=== PATIENT | female | born 1985 | race Caucasian/White ===

== ENCOUNTER 2016-11-15 13:28 | Emergency (ER) | payer MEDICAID ==
[~2016-11-15] VITALS: Ht 172.7 cm; Wt 154.2 kg
[~2016-11-15 13:28] MED LIST: CIPRO 500MG TA500 MG PO; FLEXERIL10 MG PO; NAPROXEN SODIU500 MG PO
--- OUTSIDE RECORDS SUMMARY | 2016-11-15 13:40 | External Medical Summary Rpt ---
Author Author , MAXIMUS Rendon MAXIMUS Address Unknown Phone [email or web address] Care Team Providers Care Contracting Specialist Name Role Phone [facility] Unavailable Unavailable [place], [facility] ARBEN ÁLVAREZ, HENRI Unavailable Unavailable LONNIE SOFIYA, LONNIE Unavailable Unavailable SOFIYA [facility] Unavailable Unavailable [facility], [facility], Unavailable Unavailable [facility], Unavailable Unavailable [facility] PICKLYNDA JR, Unavailable Unavailable AUBREY JR [facility] Unavailable Unavailable DEPT [place], [facility] DE[facility] [place] [facility] Unavailable Unavailable DEPT [place], [facility] [place] Purpose Continuity of Care Document - 04-08-2015 through 2016 Problems Code Diagnosis DOS Provider Status [id number] MIGRAINE 08-05-2016 [facility] NOT INTRACT INC W/O STAT MIGRAIN N912 AMENORRHEA 08-05-2016 [facility] Z720 TOBACCO USE 08-05-2016 [facility] [id number] ENCOUNTER 05-11-2016 [facility] FLOOR CARE TECHNICIAN EXAM DISTRICT GENERAL RTN [facility] DEPT W/O [place] ABNORMAL FIND Z1239 ENCOUNTER 05-11-2016 [facility] OTHER DISTRICT SCREENING [facility] DEPT MALIG [place] NEOPLASM BREAST Z3189 ENCOUNTER 05-11-2016 [facility] FOR OTHER DISTRICT PROCREATIVE [facility] DEPT MANAGEMENT [place] Z3202 ENCOUNTER 05-11-2016 [facility] FOR DISTRICT [facility] DEPT TEST RESULT [place] NEGATIVE E663 OVERWEIGHT 03-15-2016 [facility] R5383 OTHER 03-15-2016 [facility] FATIGUE PHYSICIANS GROUP J0190 ACUTE 01-12-2016 [facility] SINUSITIS PHYSICIAN UNSPECIFIED GROUP R05 COUGH 01-12-2016 [facility] R110 NAUSEA 01-12-2016 [facility] D69.6 THROMBOCYTO PENIA, UNSPECIFIED N83.209 UNSPECIFIED OVARIAN CYST, UNSPECIFIED SIDE R10.9 UNSPECIFIED ABDOMINAL PAIN Medications Na ND Rx Da Fi Fi Am Da Di Ph RX Ph St me C No te ll ll ou ys ag ar # ys at rm s nt no ma ic us Or Da si cy ia de te s n re d AZ 50 01 02 6. 5 00 RI Ac IT 11 -0 -0 00 00 TE ti HR 10 7- 3- 0 01 ve OM 78 20 20 16 AI YC 76 17 17 57 D IN 6 49 PH AR 25 MA 0 CY MG #3 TA 93 BL 8 ET BR 64 01 02 12 2 00 RI Ac OM 37 -0 -0 0. 00 TE ti PH 60 7- 3- 00 01 ve EN 65 20 20 0 16 AI IR 71 17 17 57 D -P 6 50 PH SE AR UD MA OE CY PH ED #3 -D 93 M 8 SY R Results Labs Lab Lab Date Result Refere Interp Status Commen Order Detail nces retati t Range on CHLAMYDIA AND GONORRHEA TESTING (04-08-2015 12:30) Chlamyd NEGATIV complet ia 015 E ed trachom 12:30 atis rRNA [Presen ce] in Unspeci fied specime n by Probe & target amplifi cation method Neisser NEGATIV complet ia 015 E ed gonorrh 12:30 oeae rRNA [Presen ce] in Unspeci fied specime n by Probe & target amplifi cation method CHLAMYDIA AND GONORRHEA TESTING (04-08-2015 12:30) COLLECT M. F. complet OR 015 EASTMAN, ed 12:30 RADAR TECHNICIAN ETHNICI WHITE, complet TY 015 NON-HIS ed 12:30 PANIC KIT complet EXPIRAT 015 5 ed ION 12:30 DATE SYMPTOM NO complet S 015 ed 12:30 REASON REVISIT complet FOR 015 /ANNUAL ed REQUEST 12:30 FAMILY PLANNIN G VISIT SPECIME FEMALE complet N 015 ENDOCER ed SOURCE 12:30 VICAL PREGNAN NO complet T 015 ed 12:30 CHART [id number]- complet NUMBER 015 6522 ed 12:30 Chlamyd Pending complet ia 015 ed trachom 12:30 atis rRNA [Presen ce] in Unspeci fied specime n by Probe & target amplifi cation method Neisser Pending complet ia 015 ed gonorrh 12:30 oeae rRNA [Presen ce] in Unspeci fied specime n by Probe & target amplifi cation method Procedures Procedure DOS Code Location Performer Comment URINE 92073 [facility] TEST INC INC VISUAL COLOR CMPRSN METHS UNCLASSIF J3490 [facility] IED DRUGS 7 [facility] INC INC THERAPEUT 86324 [facility] IC [facility] PROPHYLAC INC INC TIC/DX INJECTION SUBQ/IM URINE 36532 [facility] DEPT [facility] DEPT VISUAL [place] COLOR CMPRSN METHS CYTP 24911 [facility], PICKLESIM CERV/VAG 7 LLC ER JR AUTO THIN [place] [address] COMBINED COMBINED TRIIODOTH 6 PHYSICIAN PHYSICIAN YRONINE S LA S LA T3 [place] TT[place] [address] COMBINED COMBINED FREE 6 PHYSICIAN PHYSICIAN THYROXINE S LA S LA LIPID 03693 COMBINED COMBINED PANEL 6 PHYSICIAN PHYSICIAN S LA S LA HEMOGLOBI 03604 COMBINED COMBINED N 6 PHYSICIAN PHYSICIAN GLYCOSYLA S LA S LA ADRIANNE A1C GENERAL 48100 COMBINED COMBINED HEALTH 6 PHYSICIAN PHYSICIAN PANEL S LA S LA URINE 14822 [facility] LONNIE 6 PHYSICIAN SOFIYA TEST S GROUP VISUAL COLOR CMPRSN METHS Encounters Encounter Start End Date Code Location Performer Type Date OFFICE 92089 [facility] T VISIT 5 INC MINUTES [facility]OSPITAL [facility] OUTPATIEN INC T PERIODIC 31298 [facility] 7 [facility] DISTRICT E MED EST HLTH DEPT TH DEPT PATIENT [place] [facility] 18-39 YRS INITIAL 33336 [facility] LONNIE PREVENTIV 6 6 PHYSICIAN SOFIYA E S GROUP MEDICINE NEW PT AGE 18-39YRS OFFICE 72550 [facility] ÁLVAREZ OUTPATIEN 6 6 PHYSICIAN T NEW 30 GROUP MINUTES
--- OUTSIDE RECORDS SUMMARY | 2016-11-15 13:40 | External Medical Summary Rpt ---
Demographics Preferred Language Greek Marital Status Unknown Restorationism Affiliation Unknown Race Unknown Ethnic Group Unknown Author Author MAXIMUS Address Unknown Phone Immunization No patient found.
--- OUTSIDE RECORDS SUMMARY | 2016-11-15 13:40 | External Medical Summary Rpt ---
Author Author , MAXIMUS Rendon MAXIMUS Address Unknown Phone [email or web address] Care Team Providers Care Manager Battery Name Role Phone [facility] Unavailable Unavailable [place], [facility] ARBEN ÁLVAREZ, HENRI Unavailable Unavailable LONNIE SOFIYA, LONNIE Unavailable Unavailable SOFIYA [facility] Unavailable Unavailable INC, [facility], Unavailable Unavailable [facility], Unavailable Unavailable [facility] PICKLYNDA JR, Unavailable Unavailable AUBREY JR [facility] Unavailable Unavailable DEPT [place], [facility] [place] [facility] Unavailable Unavailable DEPT [place], [facility] DE[facility] [place] Purpose Continuity of Care Document - 04-08-2015 through 2016 Problems Code Diagnosis DOS Provider Status [id number] MIGRAINE 08-05-2016 [facility] NOT INTRACT INC W/O STAT MIGRAIN N912 AMENORRHEA 08-05-2016 [facility] Z720 TOBACCO USE 08-05-2016 [facility] INC [id number] ENCOUNTER 05-11-2016 [facility] 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 DEPT W/O [place] ABNORMAL FIND Z1239 ENCOUNTER 05-11-2016 [facility] OTHER DISTRICT SCREENING [facility] DEPT MALIG [place] NEOPLASM BREAST Z3189 ENCOUNTER 05-11-2016 [facility] FOR OTHER DISTRICT PROCREATIVE [facility] DEPT MANAGEMENT [place] Z3202 ENCOUNTER 05-11-2016 [facility] FOR DISTRICT [facility] DEPT TEST RESULT [place] NEGATIVE E663 OVERWEIGHT 03-15-2016 [facility] R5383 OTHER 03-15-2016 [facility] FATIGUE [facility] [id number] ACUTE 01-12-2016 [facility] SINUSITIS PHYSICIAN UNSPECIFIED GROUP R05 COUGH 01-12-2016 [facility] R110 NAUSEA 01-12-2016 [facility] D69.6 THROMBOCYTO PENIA, UNSPECIFIED [...] F. 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 DEPT VISUAL [place] COLOR CMPRSN METHS CYTP 90975 [facility], PICKLESIM CERV/VAG 7 LLC ER JR AUTO THIN [place] [address] COMBINED COMBINED TRIIODOTH 6 PHYSICIAN PHYSICIAN YRONINE S LA S LA T3 [place] TT3 [place] [address] COMBINED COMBINED FREE 6 PHYSICIAN PHYSICIAN THYROXINE S LA S LA LIPID 63323 COMBINED COMBINED PANEL 6 PHYSICIAN PHYSICIAN S LA S LA HEMOGLOBI 61580 COMBINED COMBINED N 6 PHYSICIAN PHYSICIAN GLYCOSYLA S LA S LA ADRIANNE A1C GENERAL 29853 COMBINED COMBINED HEALTH 6 PHYSICIAN PHYSICIAN PANEL S LA S LA URINE 11856 [facility] LON[facility] 6 PHYSICIAN SOFIYA TEST S GROUP VISUAL COLOR CMPRSN METHS Encounters Encounter Start End Date Code Location Performer Type Date OFFICE 49858 [facility] T VISIT 5 INC MINUTES HOSPITAL [facility] - 7 [facility] OUTPATIEN INC T PERIODIC 77773 [facility] 7 DISTRICT DISTRICT E MED EST HLTH DEPT TH DEPT PATIENT [place] JEFFERSON 18-39 YRS INITIAL 61787 [facility] LONNIE PREVENTIV 6 6 PHYSICIAN SOFIYA E S GROUP MEDICINE NEW PT AGE 18-39YRS OFFICE 52684 [facility] ÁLVAREZ OUTPATIEN 6 6 PHYSICIAN T NEW 30 GROUP MINUTES
--- OUTSIDE RECORDS SUMMARY | 2016-11-15 13:40 | External Medical Summary Rpt ---
Author Author , MAXIMUS Rendon MAXIMUS Address Unknown Phone [email or web address], [email or web address] Care Team Providers Care Electronic Tester Name Role Phone [facility] Unavailable Unavailable [place], [facility] HENRI STOKES Unavailable Unavailable LONNIE SOFIYA, LONNIE Unavailable Unavailable SOFIYA [facility] Unavailable Unavailable INC, [facility], Unavailable Unavailable [facility], Unavailable Unavailable [facility] AUBREY MARTINEZ, Unavailable Unavailable AUBREY MARTINEZ [facility] Unavailable Unavailable DEPT [place], [facility] DE[facility] [place] [facility] Unavailable Unavailable DEPT [place], [facility] DE[facility] [place] Purpose Continuity of Care Document - 01-12-2016 through 2016 Problems Code Diagnosis DOS Provider Status [id number] MIGRAINE 08-05-2016 [facility] NOT INTRACT INC W/O STAT MIGRAIN N912 AMENORRHEA 08-05-2016 [facility]NSPEC[facility]IED [facility] Z720 TOBACCO USE 08-05-2016 [facility] [id number] ENCOUNTER 05-11-2016 [facility] 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 EXAM DISTRICT GENERAL RTN [facility] DEPT W/O [place] ABNORMAL FIND Z1239 ENCOUNTER 05-11-2016 [facility] OTHER DISTRICT SCREENING [facility] DEPT MALIG [place] NEOPLASM BREAST Z3189 ENCOUNTER 05-11-2016 [facility] FOR OTHER DISTRICT PROCREATIVE [facility] DEPT MANAGEMENT [place] Z3202 ENCOUNTER 05-11-2016 [facility] FOR DISTRICT [facility] DEPT TEST RESULT [place] NEGATIVE E663 OVERWEIGHT 03-15-2016 [facility] R5383 OTHER 03-15-2016 [facility] FATIGUE PHYSICIANS GROUP J0190 ACUTE 01-12-2016 [facility] SINUSITIS PHYSICIAN UNSPECIFIED GROUP R05 COUGH 01-12-2016 [facility] R110 NAUSEA 01-12-2016 [facility] Medications Na ND Rx Da Fi Fi [...] #3 -D 93 M 8 SY R Procedures Procedure DOS Code Location Performer Comment THERAPEUT 69289 [facility] IC 7 [facility] PROPHYLAC INC INC TIC/DX INJECTION SUBQ/IM UNCLASSIF J3490 [facility] IED DRUGS 7 [facility] INC URINE 87418 [facility] TEST INC INC VISUAL COLOR CMPRSN METHS CYTP 79030 [facility], PICKLESIM CERV/VAG 7 [facility] ER JR AUTO THIN LAYER PREP MNL SCREEN URINE 53494 [facility] TEST HL[facility] DEPT HLTH DEPT VISUAL [place] COLOR CMPRSN METHS URINE 78135 [facility] 6 PHYSICIAN SOFIYA TEST S GROUP [place] [address] COMBINED COMBINED FREE 6 PHYSICIAN PHYSIC[place] [address] COMBINED COMBINED TRIIODOTH 6 PHYSICIAN PHYSICIAN YRONINE S LA S LA T3 TOTAL TT3 GENERAL 90668 COMBINED COMBINED HEALTH 6 PHYSICIAN PHYSICIAN PANEL S [place] S [place] HEMOGLOBI 32265 COMBINED COMBINED N 6 PHYSICIAN PHYSICIAN GLYCOSYLA S LA S LA ADRIANNE A1C LIPID 66365 COMBINED COMBINED PANEL 6 PHYSICIAN PHYSICIAN S LA S LA Encounters Encounter Start End Date Code Location Performer Type Date OFFICE 96712 [facility] T VISIT 5 INC MINUTES [facility]OSPITAL [facility] Herrera 7 7 [facility] OUTPATIEN INC T PERIODIC 83135 [facility] 7 DISTRICT DISTRICT E MED EST HLTH DEPT HLTH DEPT PATIENT [place] JEFFERSON 18-39 YRS INITIAL 03099 [facility] LONNIE PREVENTIV 6 6 PHYSICIAN SOFIYA Silveira S GROUP MEDICINE NEW PT AGE 18-39YRS OFFICE 74653 [facility] HENRI OUTPATIEN 6 6 PHYSICIAN T ZOHAIB 30 GROUP MINUTES
--- OUTSIDE RECORDS SUMMARY | 2016-11-15 13:40 | External Medical Summary Rpt ---
Author Author MAXIMUS Chang, [employer] Organization [employer] Address Unknown Phone Unavailable Results CHLAMYDIA AND GONORRHEA TESTING Observa Value Referen Units Interpr Notes Date tion ce etation Range COLLECT M. F. 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 tion in tion in tion in tion in 12:30 source source source source PM data data data data ETHNICI WHITE, No No No No Apr 08 TY NON-HIS informa informa informa informa 2015 PANIC tion in tion in tion in tion in 12:30 source source source source PM data data data data KIT No No No No Apr 8 EXPIRAT 5 informa informa informa informa 2015 ION tion in tion in tion in tion in 12:30 DATE source source source source PM data data data data SYMPTOM NO No No No No Apr 8 S informa informa informa informa 2015 tion in tion in tion in tion in 12:30 source source source source PM data data data data REASON REVISIT No No No No Apr 08 FOR /ANNUAL informa informa informa informa 2015 REQUEST FAMILY tion in tion in tion in tion in 12:30 source source source source PM PLANNIN data data data data G VISIT SPECIME FEMALE No No No No Apr 08 N ENDOCER informa informa informa informa 2015 SOURCE VICAL tion in tion in tion in tion in 12:30 source source source source PM data data data data PREGNAN NO No No No No Apr 8 T informa informa informa informa 2015 tion in tion in tion in tion in 12:30 source source source source PM data data data data CHART [id number]- No No No No Apr 8 NUMBER 6522 informa informa informa informa 2015 tion in tion in tion in tion in 12:30 source source source source PM data data data data Chlamyd NEGATIV No No No NEGATIV Apr 8 ia E informa informa informa E 2015 trachom tion in tion in tion in RESULT= 12:30 atis source source source WITHIN PM rRNA data data data NORMAL [Presen ce] in LIMITSP Unspeci OSITIVE fied specime RESULT= n by Probe & ABNORMA target LEQUIVO ROBERTO amplifi RESULT= cation method INDETER MINATEU NSATISF ACTORY RESULT= INVALID Neisser NEGATIV No No No NEGATIV Apr 8 ia E informa informa informa E 2015 gonorrh tion in tion in tion in RESULT= 12:30 oeae source source source WITHIN PM rRNA data data data NORMAL [Presen ce] in LIMITSP Unspeci OSITIVE fied specime RESULT= n by Probe & ABNORMA target LEQUIVO ROBERTO amplifi RESULT= cation method INDETER MINATEU NSATISF ACTORY RESULT= INVALID THE APTIMA COMBO 2 [place] IS NOT INTENDE D FOR THE EVALUAT ION OF SUSPECT EDSEXUA L ABUSE OR FOR OTHER MEDICO- LEGAL INDICAT IONS. FOR THOSE PATIENT S FORWHOM A FALSE POSITIV E RESULT MAY HAVE ADVERSE PSYCHO- SOCIAL IMPACT, THE [facility] MMENDS RETESTI NG.\.br \This report contain s patient informa tion that must be protect ed in accorda nce with the Health Insuran ce Portabi lity and Account ability Act. CHLAMYDIA AND GONORRHEA TESTING Observa Value Referen Units Interpr Notes Date tion ce etation Range COLLECT M. F. 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 TENDER tion in tion in tion in tion in 12:30 source source source source PM data data data data ETHNICI WHITE, No No No No Apr 08 TY NON-HIS informa informa informa informa 2015 PANIC tion in tion in tion in tion in 12:30 source source source source PM data data data data KIT No No No No Apr 08 EXPIRAT 5 informa informa informa informa 2015 ION tion in tion in tion in tion in 12:30 DATE source source source source PM data data data data SYMPTOM NO No No No No Apr 08 S informa informa informa informa 2015 tion in tion in tion in tion in 12:30 source source source source PM data data data data REASON REVISIT No No No No Apr 08 FOR /ANNUAL informa informa informa informa 2015 REQUEST FAMILY tion in tion in tion in tion in 12:30 source source source source PM PLANNIN data data data data G VISIT SPECIME FEMALE No No No No Apr 08 N ENDOCER informa informa informa informa 2015 SOURCE VICAL tion in tion in tion in tion in 12:30 source source source source PM data data data data PREGNAN NO No No No No Apr 08 T informa informa informa informa 2015 tion in tion in tion in tion in 12:30 source source source source PM data data data data CHART [id number]- No No No No Apr 08 NUMBER 6522 informa informa informa informa 2015 tion in tion in tion in tion in 12:30 source source source source PM data data data data Chlamyd Pending No No No No Apr 08 ia informa informa informa informa 2015 trachom tion in tion in tion in tion in 12:30 atis source source source source PM rRNA data data data data [Presen ce] in Unspeci fied specime n by Probe & target amplifi cation method Neisser Pending No No No \.br\Apr 08 ia informa informa informa is 2015 gonorrh tion in tion in tion in report 12:30 oeae source source source contain PM rRNA data data data s [Presen patient ce] in Unspeci informa fied tion specime that n by must be Probe & target protect ed in amplifi accorda cation nce method with the Health Insuran ce Portabi lity and Account ability Act.
--- OUTSIDE RECORDS SUMMARY | 2016-11-15 13:40 | External Medical Summary Rpt ---
Author Author MAXIMUS Chang, [employer] Organization [employer] Address Unknown Phone Unavailable Results CHLAMYDIA AND GONORRHEA TESTING Observa Value Referen Units Interpr Notes Date tion ce etation Range COLLECT M. F. 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 CHLAMYDIA AND GONORRHEA TESTING Observa Value Referen Units Interpr Notes Date tion ce etation Range COLLECT M. F. No No No No Apr 08 OR EASTMAN, informa informa informa informa 2015 VIDEO ARCADE MANAGER tion in tion in tion in tion [...]
--- OUTSIDE RECORDS SUMMARY | 2016-11-15 13:40 | External Medical Summary Rpt ---
Demographics Preferred Language Belarusian Marital Status Unknown Congregation Affiliation Unknown Race Unknown Ethnic Group Unknown Author Author MAXIMUS Address Unknown Phone Immunization No patient found.
--- OUTSIDE RECORDS SUMMARY | 2016-11-15 13:40 | External Medical Summary Rpt ---
Author Author , MAXIMUS Rendon MAXIMUS Address Unknown Phone [email or web address] (Livebookings) Care Team Providers Care Fire Safety Director Name Role Phone [facility] Unavailable Unavailable [place], [facility] HENRI STOKES Unavailable Unavailable LONNIE SOFIYA, LONNIE Unavailable Unavailable SOFIYA [facility] Un[facility] Un[facility], [facility], Unavailable Unavailable [facility], Unavailable Unavailable [facility] AUBREY MARTINEZ, Unavailable Unavailable AUBREY MARTINEZ [facility] Unavailable Unavailable DEPT [place], [facility] DEPT [place] [facility] Unavailable Unavailable DEPT [place], [facility] [place] Purpose Continuity of Care Document - 01-12-2016 through 2016 Problems Code Diagnosis DOS Provider Status [id number] MIGRAINE 08-05-2016 [facility] NOT INTRACT INC W/O STAT MIGRAIN N912 AMENORRHEA 08-05-2016 [facility] UNSPECIFIED [facility] INC Z720 TOBACCO USE 08-05-2016 [facility] [id number] ENCOUNTER 05-11-2016 [facility] 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 DEPT W/O [place] ABNORMAL FIND Z1239 ENCOUNTER 05-11-2016 [facility] OTHER DISTRICT SCREENING [facility] DEPT MALIG [place] NEOPLASM BREAST Z3189 ENCOUNTER 05-11-2016 [facility] FOR OTHER DISTRICT PROCREATIVE [facility] DEPT MANAGEMENT [place] Z3202 ENCOUNTER 05-11-2016 [facility] FOR DISTRICT [facility] DEPT TEST RESULT [place] NEGATIVE E663 OVERWEIGHT 03-15-2016 [facility] R5383 OTHER 03-15-2016 [facility] FATIGUE PHYSICIANS GROUP J0190 ACUTE 01-12-2016 [facility] SINUSITIS PHYSICIAN UNSPECIFIED GROUP R05 COUGH 01-12-2016 [facility] R110 NAUSEA 01-12-2016 [facility] Medications Na ND Rx Da [...] Procedure DOS Code Location Performer Comment THERAPEUT 33976 [facility] IC 7 [facility] PROPHYLAC INC INC TIC/DX INJECTION SUBQ/IM UNCLASSIF J3490 [facility] IED DRUGS 7 [facility] INC INC URINE 93938 [facility] TEST INC INC VISUAL COLOR CMPRSN METHS CYTP 22877 [facility], PICKLESIM CERV/VAG 7 [facility] ER JR AUTO THIN LAYER PREP MNL SCREEN URINE 37282 [facility] DEPT HLTH DEPT VISUAL [place] COLOR CMPRSN METHS URINE 93592 [facility] 6 PHYSICIAN SOFIYA TEST S GROUP [place] [address] COMBINED COMBINED FREE 6 PHYSICIAN PHYSIC[place] [address] COMBINED COMBINED TRIIODOTH 6 PHYSICIAN PHYSICIAN YRONINE S LA S LA T3 TOTAL TT3 GENERAL 80895 COMBINED COMBINED HEALTH 6 PHYSICIAN PHYSICIAN PANEL S LA S [place] HEMOGLOBI 52471 COMBINED COMBINED N 6 PHYSICIAN PHYSICIAN GLYCOSYLA S LA S LA ADRIANNE A1C LIPID 98881 COMBINED COMBINED PANEL 6 PHYSICIAN PHYSICIAN S LA S LA Encounters Encounter Start End Date Code Location Performer Type Date OFFICE 23205 [facility] T VISIT 5 INC MINUTES [facility]OSPITAL [facility] Herrera 7 7 [facility] OUTPATIEN INC T PERIODIC 55405 [facility] 7 [facility] DISTRICT E MED EST HLTH DEPT HLTH DEPT PATIENT [place] 18-39 YRS INITIAL 29798 [facility] LONNIE PREVENTIV 6 6 PHYSICIAN SOFIYA Silveira S GROUP MEDICINE NEW PT AGE 18-39YRS OFFICE 66016 [facility] HENRI OUTPATIEN 6 6 PHYSICIAN T ZOHAIB 30 GROUP MINUTES
--- NOTE | 2016-11-15 13:50 | Urgent Treatment Center Report ---
History of Present Issue Date/Time Seen by Provider 11/15/16 4119 Visit Reason Pt arrived:Walked Presenting Problem:PT STATES WAKING UP THIS MORNING WITH LEFT LOWER JAW SWELLING AND PAIN Location if Accident: Onset of symptoms date/time:11/15/16/ or onset unknown for:MEDICAL HX UNKNOWN Have you (or family members/close friends) recently traveled outside the [place]? N If Yes, where/when: Have you had exposure to infectious disease within the past month? TB? Other? Specify: c/o pain and swelling left upper jaw. First noticed the pain around 4am. Took Ibuprofen and fell back to sleep. Woke up w/ pain "some better" but noticed mild swelling in same area. Hx of a fractured wisdom tooth top left "but everytime I try to see the dentist, he is busy". Thinks she sees Dr. Nunez here in [place]. Denies fever, redness, malaise, ear pain, aches, chills. Pain no worse w/ chewing but noticed while brushing top left and if lays on left side. Source patient Exam Limitations no limitations ALLERGIES Coded Allergies: Coconut (From COCONUT (FOOD/DRUG)) (08/05/16) coconut (From COCONUT (FOOD/DRUG)) (08/05/16) History Medical History General CAD? No Angina: No [place]: No Hypertension? No Hyperlipidemia? No CHF? No DVT? No PE? No COPD? No Asthma? Yes Anemia? No GERD? No Gastric ulcers? No GI Bleed? No Hernia? No Thyroid Problems? No Hypothyroidism? No CVA? No Seizures? No Diabetes? No Renal Insuffiency? No UTI? No Stones? No BPH? No GB Disease: Yes Nephritic Syndrome? No Asplenia? No Hepatitis? No Sickle Cell Disease? No Arthritis? No Migraines? No Cataracts? No Glaucoma? No MRSA? No HIV? No TB? No Anxiety? No Depression? No Cancer? 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 denies: ear pain, nose pain, mouth swelling, tongue swelling, dental caries, loose teeth, throat pain, throat swelling. Respiratory denies shortness of breath Gastrointestinal denies nausea, denies vomiting Skin denies change in color, denies lesions, denies rash Psychiatric/Neurological denies headache, denies other (dizziness) Physical Exam Vital Signs Vital Signs Date Time Temp Pulse Resp B/P Pulse O2 O2 Flow FiO2 Ox Delivery Rate 11/15 1405 97.6 97 20 125/77 97 11/15 1334 97.6 97 20 97 General Appearance no apparent distress, obese Eye Exam - bilateral eye normal exam Ear, Nose, Throat jennifer EACs, TMs, nares normal; pharynx normal; no obvious dental caries; gingivitis present; partially erupted and fractures molar top left without sign of abscess, surrounding gum tender without redness, no maxillary tenderness Neck non-tender, supple Respiratory Status No: respiratory distress. Lung Sounds anterior: lungs clear. posterior: lungs clear. bilateral: lungs clear. Cardiovascular no peripheral edema Neurologic alert, oriented x 3 Skin normal color, warm/dry Lymphatic no adenopathy Medical Decision Making LABS/Meds/Orders Pt receiving controlled substance in ED? No Departure Departure Time of Disposition 1356 Disposition DC Home or Self Care(routine) Clinical Impression Primary Impression: Broken tooth with complication Qualifiers: Encounter type: initial encounter Fracture type: closed Qualified Code: S02.5XXA - Fracture of tooth (traumatic), initial encounter for closed fracture Condition STABLE Referrals NO REFERRAL Dr. Nunez, your dentist. Call today and schedule follow up appt [facility]. You can not get in there this week, call around to other local dentist offices. Patient Instructions DI for Fractured Tooth, DI for Tooth Abscess Additional Instructions * Start antibiotic(s) immediately and be sure to take as ordered for the FULL length of time unless dentist tells you otherwise. * Monitor closely. FU immediately for new or worsening symptoms ( including but not limited to redness, swelling, red streaking, fever, chills, pain). * Warm compresses may help w/ pain and/or inflammation * Tylenol 650-1000mg every 6 hours as needed and/or ibuprofen 600-800mg every 6 hours as needed (as long as your primary care doctor has told you that it is ok to take both) for aches/pain. Discharge Counseling Counseled pt/family regarding diagnosis, medications/RX, home care, follow up needs Prescriptions Current Visit Scripts AMOXICILLIN (Amoxicillin 875MG Tab) 875 MG PO BID #20 TAB at 1417
[2016-11-15] MEDS ORDERED: AMOXICILLIN875 MG PO (14:03)
[2016-11-15 14:05] VITALS: BP 125/77
== END 2016-11-15 14:06 | disposition home or self-care (01) ==
LOC: UTC 13:28
DX: S02.5XXA Fracture of tooth (traumatic), initial encounter for closed fracture (principal); Z72.0 Tobacco use

== ENCOUNTER 2017-03-12 12:43 | Emergency (ER) | payer MEDICAID ==
[~2017-03-12] VITALS: Ht 172.7 cm; Wt 154.2 kg
[~2017-03-12 12:43] MED LIST changes: +AMOXICILLIN875 MG PO
--- OUTSIDE RECORDS SUMMARY | 2017-03-12 12:48 | External Medical Summary Rpt | CCD ---
Demographics Preferred Language Eritrean Marital Status Unknown Scientologist Affiliation Unknown Race Unknown Ethnic Group Unknown Author Author , MAXIMUS STROUD Address Unknown Phone Immunization No patient found.
--- OUTSIDE RECORDS SUMMARY | 2017-03-12 12:48 | External Medical Summary Rpt | CCD ---
Author Author [employer] Organization [employer] Address Unknown Phone Unavailable Purpose Continuity of Care Document - through 2016
--- OUTSIDE RECORDS SUMMARY | 2017-03-12 12:48 | External Medical Summary Rpt | CCD ---
Author Author , MAXIMUS STROUD Address Unknown Phone [email or web address] Purpose Continuity of Care Document - through 2016 Problems Code Diagnosis DOS Provider Status D69.6 THROMBOCYTO PENIA, UNSPECIFIED N83.209 UNSPECIFIED OVARIAN CYST, UNSPECIFIED SIDE R10.9 UNSPECIFIED ABDOMINAL PAIN
--- OUTSIDE RECORDS SUMMARY | 2017-03-12 12:48 | External Medical Summary Rpt | CCD ---
Author Author , MAXIMUS STROUD Address Unknown Phone [email or web address] Purpose Continuity of Care Document - through 2016 Problems Code Diagnosis DOS Provider Status D69.6 THROMBOCYTO PENIA, UNSPECIFIED N83.209 UNSPECIFIED OVARIAN CYST, UNSPECIFIED SIDE R10.9 UNSPECIFIED ABDOMINAL PAIN
--- OUTSIDE RECORDS SUMMARY | 2017-03-12 12:48 | External Medical Summary Rpt | CCD ---
Demographics Preferred Language Salvadorean Marital Status Unknown Samaritan Affiliation Unknown Race Unknown Ethnic Group Unknown Author Author , MAXIMUS STROUD Address Unknown Phone Immunization No patient found.
--- NOTE | 2017-03-12 13:09 | Urgent Treatment Center Report ---
History of Present Issue Date/Time Seen by Provider 03/12/17 1302 Visit Reason Pt arrived:Walked Presenting Problem:PT C/O A MIGRAINE THAT CAME ON SUDDEN THIS AM AROUND 0500 PT TOOK EXCEDRINE BUT NO CHANGE. LIGHT AND NOISE SENSITIVE WITH N/V. Location if Accident: Onset of symptoms date/time:03/12/1703/18/500 or onset unknown for: Have you (or family members/close friends) recently traveled outside the [place]? N If Yes, where/when: Have you had exposure to infectious disease within the past month? TB? Other? Specify: Source patient, RN notes reviewed Exam Limitations no limitations Comment Migraine headache with acute onset this am. Has a migraine every 1-2 months. Usually resolves with Excedrin Migraine but today it has not helped. Is sensitive to light and nauseated. No different symptoms than previous headaches other than it isn't going away as easily. ALLERGIES Coded Allergies: coconut (From COCONUT (FOOD/DRUG)) (08/05/16) History Medical History General CAD? No Angina: No [place]: No Hypertension? No Hyperlipidemia? No CHF? No DVT? No PE? No COPD? No Asthma? Yes Anemia? No GERD? No Gastric ulcers? No GI Bleed? No Hernia? No Thyroid Problems? No Hypothyroidism? No CVA? No Seizures? No Diabetes? No Renal Insuffiency? No UTI? No Stones? No BPH? No GB Disease: Yes Nephritic Syndrome? No Asplenia? No Hepatitis? No Sickle Cell Disease? No Arthritis? No Migraines? Yes Cataracts? No Glaucoma? No MRSA? No HIV? No TB? No Anxiety? No Depression? No Cancer? 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 Social History Smoking Hx Smoker: Current Every Day Smoker Tobacco: Yes Type Cigarettes Packs/day < 1 Pack Alcohol Alcohol: No Review of Systems All Other Systems Reviewed and Negative Gastrointestinal nausea, vomiting Psychiatric/Neurological headache Physical Exam Vital Signs Vital Signs Date Time Temp Pulse Resp B/P Pulse O2 O2 Flow FiO2 Ox Delivery Rate 03/12 1252 98.6 86 18 125/69 96 General Appearance normal appearance, no apparent distress Eye Exam - bilateral eye normal exam, bilateral eye PERRL, bilateral eye EOMI Ear, Nose, Throat hearing grossly normal, normal ENT inspection Respiratory Status No: respiratory distress, trachea midline, chest symmetrical. Lung Sounds bilateral: normal breath sounds, lungs clear. Cardiovascular normal exam, regular rate/rhythm, no peripheral edema, no gallop, no JVD, no murmur, no rub Extremities non-tender, normal range of motion, normal inspection, normal capillary refill Neurologic alert, normal exam, no motor/sensory deficits, oriented x 3 Mental status normal mood/affect Medical Decision Making LABS/Meds/Orders Pt receiving controlled substance in ED? No Results/Orders Current Medication Orders Sig/Ysabel Start time Last Medication Dose Route Stop Time Status Admin Ketorolac 60 MG ONCE ONE 03/12 1330 AC Tromethamine IM 03/12 1331 Promethazine HCl 25 MG ONCE ONE 03/12 1330 AC IM 03/12 1331 Sodium Chloride 25 ML ONCE ONE 03/12 1330 AC IV 03/12 1344 Ketorolac 0 .STK-MED ONE 03/12 1321 DC Tromethamine .ROUTE Promethazine HCl 0 .STK-MED ONE 03/12 1321 DC .ROUTE Departure Departure Time of Disposition 1325 Disposition DC Home or Self Care(routine) Clinical Impression Primary Impression: Migraine headache Qualifiers: Migraine type: without aura Status migrainosus presence: without status migrainosus Intractability: not intractable Qualified Code: G43.009 - Migraine without aura, not intractable, without status migrainosus Condition STABLE Referrals Patricia BUCHANAN,Long Donald (Family): 2 Days-Call Office Patient Instructions DI for Migraine Additional Instructions F/U if headache does not resolve or if symptoms change Discharge Counseling Counseled pt/family regarding diagnosis, medications/RX, home care, follow up needs at 1326
[2017-03-12 13:40] VITALS: BP 125/69
== END 2017-03-12 13:50 | disposition home or self-care (01) ==
LOC: UTC 12:43
DX: G43.009 Migraine without aura, not intractable, without status migrainosus (principal); J45.909 Unspecified asthma, uncomplicated; Z72.0 Tobacco use

== ENCOUNTER 2017-04-02 15:09 | Emergency (ER) | payer MEDICAID ==
[~2017-04-02] VITALS: Ht 172.7 cm; Wt 145.2 kg
--- OUTSIDE RECORDS SUMMARY | 2017-04-02 15:16 | External Medical Summary Rpt | CCD ---
Author Author , MAXIMUS STROUD Address Unknown Phone [email or web address] Providers Care Neighborhood Aide Name Role Phone [facility], Unavailable Unavailable [facility], Unavailable Unavailable [facility] Unavailable Unavailable [facility] [place], [facility] [place] Purpose Continuity of Care Document - 04-08-2015 through 2016 Problems Code Diagnosis DOS Provider Status [id number] ENCOUNTER 05-11-2016 [facility] 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 GENERAL RTN [facility] DEPT W/O [place] ABNORMAL FIND Z1239 ENCOUNTER 05-11-2016 [facility] OTHER DISTRICT SCREENING [facility] DEPT MALIG [place] NEOPLASM BREAST Z3189 ENCOUNTER 05-11-2016 [facility] FOR OTHER DISTRICT PROCREATIVE [facility] DEPT MANAGEMENT [place] Z3202 ENCOUNTER 05-11-2016 [facility] FOR DISTRICT [facility] DEPT TEST RESULT [place] NEGATIVE E663 OVERWEIGHT 03-15-2016 [facility] [id number] OTHER 03-15-2016 [facility] FATIGUE PHYSICIANS GROUP Z720 TOBACCO USE 03-15-2016 [facility] J0190 ACUTE 01-12-2016 [facility] SINUSITIS PHYSICIAN UNSPECIFIED GROUP R05 COUGH 01-12-2016 [facility] R110 NAUSEA 01-12-2016 [facility] D69.6 THROMBOCYTO PENIA, UNSPECIFIED N83.209 UNSPECIFIED OVARIAN CYST, UNSPECIFIED SIDE R10.9 UNSPECIFIED ABDOMINAL PAIN Medications Na ND Rx Da Fi Fi Am Da Di Ph RX Ph St me C No te ll ll ou ys ag ar # ys at rm s nt no ma ic us Or Da si cy ia de te s n re d AM 00 07 08 20 10 00 RI Ac OX 14 -1 -1 .0 00 TE ti IC 39 7- 1- 00 01 ve IL 95 20 20 19 AI LI 10 17 17 20 D N 1 18 PH 87 AR 5 MA MG CY TA #3 BL 93 ET 8 [place] 50 01 02 6. 5 00 [...] F. 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
--- OUTSIDE RECORDS SUMMARY | 2017-04-02 15:16 | External Medical Summary Rpt ---
Author Author MAXIMUS Chang, [employer] Organization [employer] Address Unknown Phone Unavailable Results CHLAMYDIA AND GONORRHEA TESTING Observa Value Referen Units Interpr Notes Date tion ce etation Range COLLECT M. F. 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 CHLAMYDIA AND GONORRHEA TESTING Observa Value Referen Units Interpr Notes Date tion ce etation Range COLLECT M. F. 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
--- OUTSIDE RECORDS SUMMARY | 2017-04-02 15:16 | External Medical Summary Rpt | CCD ---
Author Author , MAXIMUS STROUD Address Unknown Phone [email or web address] Care Team Providers Care Pediatric Nurse Practitioner Name Role Phone [facility], Unavailable Unavailable [facility], Unavailable Unavailable [facility] Unavailable Unavailable DE[facility] [place], [facility] [place] Purpose Continuity of Care Document - 04-08-2015 through 2016 Problems Code Diagnosis DOS Provider Status [id number] ENCOUNTER 05-11-2016 [facility] 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 DEPT W/O [place] ABNORMAL FIND Z1239 ENCOUNTER 05-11-2016 [facility] OTHER DISTRICT SCREENING [facility] DEPT MALIG [place] NEOPLASM BREAST Z3189 ENCOUNTER 05-11-2016 [facility] FOR OTHER DISTRICT PROCREATIVE [facility] DEPT MANAGEMENT [place] Z3202 ENCOUNTER 05-11-2016 [facility] FOR DISTRICT [facility] DEPT TEST RESULT [place] NEGATIVE E663 OVERWEIGHT 03-15-2016 [facility] R5383 OTHER 03-15-2016 [facility] FATIGUE PHYSICIANS GROUP Z720 TOBACCO USE 03-15-2016 [facility] J0190 ACUTE 01-12-2016 [facility] SINUSITIS PHYSICIAN UNSPECIFIED GROUP R05 COUGH 01-12-2016 [facility] R110 NAUSEA 01-12-2016 [facility] D69.6 THROMBOCYTO PENIA, UNSPECIFIED N83.209 [...] F. 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
--- OUTSIDE RECORDS SUMMARY | 2017-04-02 15:16 | External Medical Summary Rpt ---
Author Author MAXIMUS Chang, [employer] Organization [employer] Address Unknown Phone Unavailable Results CHLAMYDIA AND GONORRHEA TESTING Observa Value Referen Units Interpr Notes Date tion ce etation Range COLLECT M. F. 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 CHLAMYDIA AND GONORRHEA TESTING Observa Value Referen Units Interpr Notes Date tion ce etation Range COLLECT M. F. No No No No Apr 08 OR [place], informa informa informa informa 2015 BARREL LAPPER tion in tion in tion in tion [...]
--- OUTSIDE RECORDS SUMMARY | 2017-04-02 15:16 | External Medical Summary Rpt | CCD ---
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 EXAM DISTRICT GENERAL RTN [facility] DEPT W/O [place] ABNORMAL FIND Z1239 ENCOUNTER 05-11-2016 [facility] OTHER DISTRICT SCREENING [facility] DEPT MALIG [place] NEOPLASM BREAST Z3189 ENCOUNTER 05-11-2016 [facility] FOR OTHER DISTRICT PROCREATIVE [facility] DEPT MANAGEMENT [place] Z3202 ENCOUNTER 05-11-2016 [facility] FOR DISTRICT [facility] DEPT TEST RESULT [place] NEGATIVE E663 OVERWEIGHT 03-15-2016 [facility] R5383 OTHER 03-15-2016 [facility] FAT[facility]UE [facility] Z720 TOBACCO USE 03-15-2016 [facility] J0190 ACUTE 01-12-2016 [facility] SINUSITIS PHYSICIAN UNSPECIFIED GROUP R05 COUGH 01-12-2016 [facility] R110 NAUSEA 01-12-2016 [facility] Medications Na ND Rx [...]
--- OUTSIDE RECORDS SUMMARY | 2017-04-02 15:16 | External Medical Summary Rpt | CCD ---
Demographics Preferred Language Cape Verdean Marital Status Unknown Cheondoism Affiliation Unknown Race Unknown Ethnic Group Unknown Author Author , MAXIMUS STROUD Address Unknown Phone Immunization No patient found.
--- OUTSIDE RECORDS SUMMARY | 2017-04-02 15:16 | External Medical Summary Rpt | CCD ---
Demographics Preferred Language Monegasque Marital Status Unknown Anabaptism Affiliation Unknown Race Unknown Ethnic Group Unknown Author Author , MAXIMUS STROUD Address Unknown Phone Immunization No patient found.
--- OUTSIDE RECORDS SUMMARY | 2017-04-02 15:16 | External Medical Summary Rpt | CCD ---
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 RTN [facility] DEPT W/O [place] ABNORMAL FIND Z1239 ENCOUNTER 05-11-2016 [facility] OTHER DISTRICT SCREENING [facility] DEPT MALIG [place] NEOPLASM BREAST Z3189 ENCOUNTER 05-11-2016 [facility] FOR OTHER DISTRICT PROCREATIVE [facility] DEPT MANAGEMENT [place] Z3202 ENCOUNTER 05-11-2016 [facility] FOR DISTRICT [facility] DEPT TEST RESULT [place] NEGATIVE E663 OVERWEIGHT 03-15-2016 [facility] R5383 OTHER 03-15-2016 [facility] FATIGUE [facility] Z720 TOBACCO USE 03-15-2016 [facility] J0190 ACUTE 01-12-2016 [facility] SINUSITIS PHYSICIAN UNSPECIFIED GROUP R05 COUGH 01-12-2016 [facility] R110 NAUSEA 01-12-2016 [facility] Medications Na ND Rx Da [...]
--- NOTE | 2017-04-02 15:37 | Urgent Treatment Center Report ---
History of Present Issue Date/Time Seen by Provider 04/02/17 1531 Visit Reason Pt arrived:Walked Presenting Problem:LEFT FOOT PAIN BEGAN YESTERDAY DENIES INJURY Location if Accident: Onset of symptoms date/time:/ or onset unknown for:MEDICAL HX UNKNOWN Have you (or family members/close friends) recently traveled outside the [place]? N If Yes, where/when: Have you had exposure to infectious disease within the past month? TB? Other? 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 No Angina: No [place]: No Hypertension? No Hyperlipidemia? No CHF? No DVT? No PE? No COPD? No Asthma? Yes Anemia? No GERD? No Gastric ulcers? No GI Bleed? No Hernia? No Thyroid Problems? No Hypothyroidism? No CVA? No Seizures? No Diabetes? No Renal Insuffiency? No UTI? No Stones? No BPH? No GB Disease: Yes Nephritic Syndrome? No Asplenia? No Hepatitis? No Sickle Cell Disease? No Arthritis? No Migraines? Yes Cataracts? No Glaucoma? No MRSA? No HIV? No TB? No Anxiety? No Depression? No Cancer? No Immunization HX DT/Tetanus 5-10 YRS Surgical Hx Previous Surgery?Y Tonsils Cholecystectomy Social History Smoking Hx Smoker: Current Every Day Smoker Tobacco: Yes Type Cigarettes Packs/day < 1 Pack Alcohol Alcohol: No Review of Systems All Other Systems Reviewed and Negative Physical Exam Vital Signs Vital Signs Date Time Temp Pulse Resp B/P Pulse O2 O2 Flow FiO2 Ox Delivery Rate 04/02 1518 97.6 95 20 113/83 96 General Appearance normal appearance, WD/WN, no apparent distress Respiratory Status Yes: trachea midline, chest symmetrical, non tender chest. No: respiratory distress. Lung Sounds bilateral: normal breath sounds, lungs clear. Cardiovascular normal exam, regular rate/rhythm, no peripheral edema Extremities Pain in the left foot, no known injury, no discoloration, no swelling good pulses, good cap refill Neurologic alert, normal exam, oriented x 3 Medical Decision Making LABS/Meds/Orders Pt receiving controlled substance in ED? No Results/Orders Orders Procedure Date/time Status UTC STABILIZE JOINT/AREA 04/02 1608 Active FOOT-LT-3 VIEWS 04/02 1526 Active XRAY/CT/US XRAY/CT/US XRAY foot XR interpretation by reviewed by me Xray Results no fracture seen, heel spur Departure Departure Time of Disposition 1608 Disposition DC Home or Self Care(routine) Clinical Impression Primary Impression: Heel spur Qualifiers: Laterality: left Qualified Code: M77.32 - Calcaneal spur, left foot Condition STABLE Referrals Patricia BUCHANAN,Long Donald (Family): 2 Days-Call Office DASHAWN NO DPM Patient Instructions DI for Foot Pain, How To Perform RICE (Rest, Ice, Compress, Elevate) Additional Instructions *RICE, Rest the extremity, Ice 15-20 minutes 3-4 times daily, Compress- wear the romulo wrap as discussed as much as possible to help reduce swelling and pain, Elevate the extremity when at rest *Romulo wrap is for support and help control swelling, use it except in the shower. Be sure that is not to tight but not to loose either *Elevate when resting *Ibuprofen 600-800mg every 6-8 hours as needed for pain an inflammation. If need something more can take Tylenol in between doses of Ibuprofen to help Immediately follow up for new or worsening of symptoms, or no noticeable improvement over the next 3-5 days At [facility] you can buy heel protectors that may help with pain associated with heel spurs Call Dr No office on Tuesday for appointment if pain persists Discharge Counseling Counseled pt/family regarding diagnosis, test results, medications/RX, home care, follow up needs Prescriptions Current Visit Scripts Ibuprofen (Ibuprofen 800MG) 800 MG PO QIDP PRN pain #30 TAB at 1619
[2017-04-02] MEDS ORDERED: IBUPROFEN800 MG PO (16:04)
[2017-04-02 16:18] VITALS: BP 113/83
--- NOTE | 2017-04-02 16:47 | RADIOLOGY REPORT PS360 ---
FOOT-LT-3 VIEWS Ordering Physician: BREANNA MOCTEZUMA APRN Patient Age: 32 years: Female HISTORY: PAIN left foot pain. 3 days. No injury. TECHNIQUE: 3 view left foot COMPARISON :Right foot 3 views 2006 FINDINGS The left foot appears intact with no acute fracture nor dislocation nor soft tissue findings. I would note generous distance between the first and second ray/, most evident at the toes. This is best seen on the frontal projection. Nonspecific but is mildly asymmetric.. If significant old injury or Here persistent pain would Suggest podiatry follow-up. The metatarsals tarsals are intact. Tarsals appear intact with satisfactory appearance/relationships. No There is a small plantar calcaneal spur. 5 mm length. IMPRESSION: No Acute findings at left foot. No fracture evident. Slightly asymmetry, with more generous distance between first & second toe,, distal first & second ray on the left than previous right foot radiograph. Likely merely reflect normal anatomical variation, but if pain in this region persist, would encourage a podiatry follow-up..
[2017-04-21] MEDS ORDERED: MOBIC7.5 MG PO (16:40)
== END 2017-04-02 16:20 | disposition home or self-care (01) ==
LOC: UTC 15:09
DX: M77.32 Calcaneal spur, left foot (principal); M79.672 Pain in left foot